=== PATIENT | male | born 1965 | race Caucasian/White ===

== ENCOUNTER 2025-05-20 16:34 | Emergency (ER) | payer BC, SELFPAY ==
--- NOTE | ~2025-05-20 | CT_ITS ---
CLINICAL HISTORY: fall head strike on rock neck pain CT cervical spine without contrast Comparison: None available Findings: Mild multilevel anterolisthesis, degenerative. No fracture. Multilevel degenerative change is most prominent at C5/C6 with moderate to severe central spinal canal stenosis. No epidural hematoma. Normal thickness of the prevertebral soft tissues. The lung apices are clear. Impression: No acute findings. This document has been electronically signed by: Tiffani Apple MD on 05/20/2025 18:42:10
--- NOTE | ~2025-05-20 | CT_ITS ---
CLINICAL HISTORY: fall head strike on rock CT head without contrast Comparison: None available Findings: No acute hemorrhage. No extra-axial fluid collection. No hydrocephalus, mass-effect or herniation. Glover-white differentiation is maintained. White matter is within normal limits for age. No acute orbital pathology. Frontal scalp soft tissue swelling measuring up to 4 mm in thickness. Right nasal bone fracture. The visualized paranasal sinuses are predominantly clear. The mastoid air cells are clear. Impression: No acute intracranial findings. This document has been electronically signed by: Tiffani Apple MD on 05/20/2025 18:49:29
--- NOTE | ~2025-05-20 | CT_ITS ---
CLINICAL HISTORY: fall hit forehead on rock CT maxillofacial without contrast Comparison: None available Findings: Right nasal bone fracture. Lateral displacement measures up to 1 mm. Absent right front tooth ( tooth 8), chronic appearing. Periapical cyst at tooth 7. The osseous structures are otherwise intact. No dislocation. No acute orbital or intracranial findings. Clear paranasal sinuses and mastoid air cells. Frontal scalp soft tissue swelling. No definitive nasal soft tissue swelling. Impression: Right nasal bone fracture, acute versus chronic. This document has been electronically signed by: Tiffani Apple MD on 05/20/2025 18:47:36
[2025-05-20 16:41] VITALS: BP 209/102; PULSE 75; RESP 18; TEMP 36.6; O2SAT 99; BMI 24.4
--- NOTE | 2025-05-20 16:48 | ED.HEATRA ---
HPI - Head Injury General Chief complaint: Head Injury Stated complaint: Fall, head vs rock, headache, weak Time Seen by Provider: 05/20/25 18:12 Source: patient Limitations: no limitations History of Present Illness ED Provider: Mere Ferraro PA-C HPI Narrative: 60-year-old male presents after fall. Patient states he was hiking yesterday, he was on his cell phone while walking, he subsequently tripped falling forward striking his head. Patient has sustained a forehead laceration. Tetanus not up-to-date. There was no loss consciousness, the patient is not on a blood thinner. Denies headache, dizziness, nausea vomiting. Related Data Allergies Allergy/AdvReac Type Severity Reaction Status Date / Time No Known Allergies Allergy Verified 05/20/25 16:47 Review of Systems Review of Systems: Yes all other systems are reviewed and are negative Constitutional: Constitutional: Denies fatigue, Denies fever(s) and Denies headache(s) ENT: Denies dizziness and Denies headache(s) Gastrointestinal: Gastrointestinal: Denies nausea and Denies vomiting Neurologic: Denies dizziness and Denies headache(s) Endocrine: Endocrine: Denies fatigue [facility] Past Medical History Attestation statement: The following information was validated with the patient. Social History Social History Advance Directives: No Advance Directives Information Provided: No Do you have a plan to hurt others: No Plan Physical Exam Vital Signs: Vital Signs: Last Vital Signs Temp 98 F 05/20/25 22:38 Pulse 75 05/20/25 22:38 Resp 18 05/20/25 22:38 BP 209/102 H 05/20/25 22:38 Pulse Ox 99 05/20/25 22:38 O2 Del Method Room Air 05/20/25 22:38 BMI result Body Mass Index 24.4 Const: Other: Alert, overall well-appearing, contusion noted central forehead with overlying laceration. The laceration is irregular, superficial, measures overall 2 cm in length, not bleeding Orientation/consciousness: patient oriented x3 Resp: Effort & Inspection: normal respiratory effort Cardio: Other: Normal peripheral perfusion Skin: Other: Warm dry no rash Neuro: General: patient oriented x3, gait normal, no focal motor deficits and CN's II-XI intact bilaterally Psych: Other: Cooperative Course Course Course Narrative: This is a Rapid Medical Examination (RME) performed by Jaleesa Avila PA-C in triage. Full HPI, ROS, assessment and treatment plan per primary provider in the Main ED. Hx: 60 yo M here with laceration to forehead sustained yesterday while hiking the [address] [place] in [place] yesterday around 1700. Reports looking down at his phone while hiking causing him to trip and fall forward, striking his forehead on a rock. He does not believe he lost consciousness. Denies any blood thinners. He was unable to seek help at that time [place] Reports fatigue and mild headache. Denies dizziness or vision changes. Reports tearing from the left eye last night which has since resolved. PE/vitals: Hypertensive, reports taking his losartan later in the day today than usual. Missed his dose yesterday. PERRLA. Refer to photo below. No palpable skull fracture. No buitrago sign, raccoon eyes. Plan: imaging, tdap, lac repair Medications Administered Discontinued Medications Generic Name Dose Route Start Last Admin Trade Name Lee PRN Reason Stop Dose Admin Diphtheria/Tetanus/Acell Pertussis 0.5 ml 05/20/25 22:18 05/20/25 22:33 Diphth,Pertus(Acell),Tet Adult 0.5 Ml Syringe IM 05/20/25 22:19 0.5 ml .ONCE ONE Administration Lidocaine/Epinephrine 10 ml 05/20/25 18:14 05/20/25 22:20 Lidocaine Hcl 1%/Epi 1:100,000 10 Ml Vial INFILTRATI 05/20/25 18:15 10 ml ONCE ONE Administration Medical Decision Making Medical Decision Making MDM Narrative: 60-year-old male presents after fall. Patient states he was hiking yesterday, he was on his cell phone while walking, he subsequently tripped falling forward striking his head. Patient has sustained a forehead laceration. Tetanus not up-to-date. There was no loss consciousness, the patient is not on a blood thinner. Denies headache, dizziness, nausea vomiting. No chronic issues History: Per patient I have considered the following differential diagnoses: Intracranial hemorrhage, skull fracture, cervical spine injury, facial bone fracture, contusion, laceration Plan: Imaging obtained from triage, everything was negative. There was a comment about acute on chronic nasal bone fractures, the patient states he sustained nasal bone fractures as a teenager. Laceration will require simple repair. Updating tetanus. I have independently reviewed the following tests: CT brain:Findings: No acute hemorrhage. No extra-axial fluid collection. No hydrocephalus, mass-effect or herniation. Glover-white differentiation is maintained. White matter is within normal limits for age. No acute orbital pathology. Frontal scalp soft tissue swelling measuring up to 4 mm in thickness. Right nasal bone fracture. The visualized paranasal sinuses are predominantly clear. The mastoid air cells are clear. Impression: No acute intracranial findings. CT max face: Findings: Right nasal bone fracture. Lateral displacement measures up to 1 mm. Absent right front tooth ( tooth 8), chronic appearing. Periapical cyst at tooth 7. The osseous structures are otherwise intact. No dislocation. No acute orbital or intracranial findings. Clear paranasal sinuses and mastoid air cells. Frontal scalp soft tissue swelling. No definitive nasal soft tissue swelling. Impression: Right nasal bone fracture, acute versus chronic. CT cervical spine:Findings: Mild multilevel anterolisthesis, degenerative. No fracture. Multilevel degenerative change is most prominent at C5/C6 with moderate to severe central spinal canal stenosis. No epidural hematoma. Normal thickness of the prevertebral soft tissues. The lung apices are clear. Impression: No acute findings. Procedures Laceration Laceration 1: Site: face Size (cm): 2 Description: irregular Depth: simple, single layer Local Anesthetic: lidocaine 1% and with epi Amount of anesthesia used (mL): 2 Pre-repair: irrigated extensively Skin layer closed with: vicryl Size (cm): 5-0 Number of sutures: 4 Technique: simple, interrupted Discharge Plan Discharge Clinical Impression: Closed head injury, Forehead laceration Patient Disposition: Home, Self-Care Instructions: Skin Adhesive Care (ED), Care For Your Absorbable Stitches (ED) Additional Instructions: The CT scan of your face, brain and cervical spine were negative for acute injury. In regard to the laceration, 4 absorbable sutures were placed, they will dissolve on their own. The remainder of the wound was sealed with surgical glue. The glue will slough off on its own. See home care instructions. Follow up with primary care as needed. Interventions: ED Discharge Assessment Last Done: 05/20/25 22:38 Discharge Date/Time: 05/20/25 22:39 Print Language: Malay
[2025-05-20] MEDS: Lidocaine HCl 1%/Epi 1:100,000 10 ML VIAL INFILTRATI (22:20)
[2025-05-20] MEDS: Diphth,Pertus(ACell),Tet Adult 0.5 ML SYRINGE IM (22:33)
[2025-05-20 22:38] VITALS: BP 209/102; PULSE 75; RESP 18; TEMP 36.6; O2SAT 99
== END 2025-05-20 22:39 | disposition home or self-care (01) ==
PROVIDERS: Emergency Provider Emergency Medicine
DX: S01.81XA Laceration without foreign body of other part of head, initial encounter (principal); W18.39XA Other fall on same level, initial encounter; Y93.01 Activity, walking, marching and hiking; Y92.89 Other specified places as the place of occurrence of the external cause; Y99.9 Unspecified external cause status; M54.2 Cervicalgia; Z23 Encounter for immunization
CPT/HCPCS: 12011; 70450; 70486; 72125; 90471; 90715; 99282; 99284; J2004

== ENCOUNTER → 2025-05-20 16:46 | Outpatient (BNV) | payer BC, SELFPAY | PROVIDERS: Emergency Provider Emergency Medicine; Visit Provider Radiology Diagnostic Radiology | DX: R51.9 Headache, unspecified (principal); M54.2 Cervicalgia; S01.81XA Laceration without foreign body of other part of head, initial encounter; W01.198A Fall on same level from slipping, tripping and stumbling with subsequent striking against other object, initial encounter | CPT/HCPCS: 70450; 70486; 72125 ==